=== PATIENT | female | born 1960 | race Caucasian/White ===

== ENCOUNTER 2019-09-17 20:21 | Inpatient (IN) ==
[~2019-09-17 20:21] MED LIST: Ipratropium Neb 0.5 MG NEBULIZER ONE
[2019-09-18] MEDS ORDERED: Naloxone 0.4 MG/ML INJ IVP PRN (03:50)
[2019-09-18] MEDS ORDERED: Ondansetron ODT 4 MG TAB.RAPDIS SL PRN (03:50)
[2019-09-18] MEDS ORDERED: Acetaminophen 325 MG TABLET PO PRN (03:50)
[2019-09-18] MEDS ORDERED: Albuterol 2.5 MG/3 ML NEBULIZER IH PRN (03:53)
[2019-09-18] MEDS: Ipratropium/Albuterol Neb 3 ML IH SCH ×4 (04:26→22:20)
[2019-09-18] MEDS ORDERED: *HR* LORazepam 2 MG/ML VIAL IVP ONE (04:28)
[2019-09-18] MEDS: Azithromycin 500 MG in 0.9 % Sodium Chloride 250 ML IVPB SCH (05:42)
[2019-09-18] MEDS: MethylPREDNISolone 40 MG/ML VIAL IVP SCH ×3 (05:43→17:08)
[2019-09-18 06:40] LABS: ABG Base Excess 18 mEq/L (-2 to 3); ABG HCO3 47 mEq/L (21-27); ABG Oxygen Saturation 97 % (95-98); ABG PCO2 75 mmHg (35-45); ABG PO2 93 mmHg (85-104); ABG TCO2 49 mEq/L (20-26); Blood Gas Modality NIV
[2019-09-18 07:11] LABS: Hematocrit 42.1 % (35.3-44.9); Mean Corpuscular HGB Conc 30.9 g/dL (31.6-35.5); Mean Corpuscular Hemoglobin 28.9 pg (28.0-33.3); Mean Corpuscular Volume 93.6 fL (83.0-100.0); Mean Platelet Volume 9.6 fL (9.4-12.4); Platelet Count 211 K/mcL (140-400); Red Cell Distribution Width 14.4 % (11.5-14.5); White Blood Count 10.1 K/mcL (4.3-11.1)
[2019-09-18 07:24] LABS: Adenovirus Not Detected (Not Detect); Bordetella Pertussis Not Detected (Not Detect); Chlamydophila pneumoniae Not Detected (Not Detect); Coronavirus 229E Not Detected (Not Detect); Coronavirus HKU1 DETECTED (Not Detect); Coronavirus NL63 Not Detected (Not Detect); Coronavirus OC43 Not Detected (Not Detect); Human Metapneumovirus Not Detected (Not Detect); Human Rhinovirus/Enterovirus Not Detected (Not Detect); Influenza B Not Detected (Not Detect); Mycoplasma pneumoniae Not Detected (Not Detect); Parainfluenza Virus 1 Not Detected (Not Detect); Parainfluenza Virus 2 Not Detected (Not Detect); Parainfluenza Virus 3 Not Detected (Not Detect); Parainfluenza Virus 4 Not Detected (Not Detect); Respiratory Syncytial Virus Not Detected (Not Detect)
[2019-09-18 07:26] LABS: Influenza A Subtype 2009 H1 DETECTED (Not Detect)
[2019-09-18 07:58] LABS: BUN/Creatinine Ratio 37 (6-26); Blood Urea Nitrogen 14 mg/dL (8-23); Calcium 8.6 mg/dL (8.6-10.3); Carbon Dioxide > 45 mEq/L (23-29); Chloride 94 mEq/L (98-107); Glucose 106 mg/dL (70-105); Osmolality,Calculated 293 (280-300); Potassium 3.7 mEq/L (3.5-5.1); Sodium 141 mEq/L (136-145); eGFR For African Americans > 60 (> 60); eGFR For Non-African Americans > 60 (> 60)
[2019-09-18] MEDS ORDERED: *HR* OxyCODONE/APAP 7.5/325 TABLET PO PRN (09:00)
[2019-09-18] MEDS ORDERED: Potassium Chloride Elixir 20 MEQ/15 ML UDC PO ONE (09:00)
[2019-09-18] MEDS: cefTRIAXone 1,000 MG in Water for inj. (sterile) 10 ML IVP SCH (10:11)
[2019-09-18] MEDS: DilTIAZem CD (24hr) 180 MG CAP.ER.24H PO SCH (10:11)
[2019-09-18] MEDS: Nicotine 21 MG PATCH.TD24 TD SCH (10:11)
[2019-09-18] MEDS: Furosemide 20 MG/2 ML VIAL IVP SCH ×2 (10:12→21:24)
[2019-09-18] MEDS: Budesonide/Formoterol 160/4.5 1 PUFF INH IH SCH ×2 (10:45→22:20)
[2019-09-18] MEDS ORDERED: Ondansetron ODT 4 MG TAB.RAPDIS SL SCH (12:00)
[2019-09-18] MEDS: *HR* Rivaroxaban 10 MG TABLET PO SCH (17:07)
[2019-09-18] MEDS: *HR* OxyCODONE/APAP 7.5/325 TABLET PO PRN (21:27)
[2019-09-19 02:07] LABS: White Blood Count 11.1 K/mcL (4.3-11.1)
[2019-09-19 02:08] LABS: Basophils % 0.2 %; Hematocrit 39.3 % (35.3-44.9); Hemoglobin 12.1 g/dL (11.5-15.4); Immature Granulocytes % 1.4 % (0-4); Lymphocytes # 0.6 K/mcL (0.6-4.6); Lymphocytes % 5.1 %; Mean Corpuscular HGB Conc 30.8 g/dL (31.6-35.5); Mean Corpuscular Hemoglobin 28.2 pg (28.0-33.3); Mean Corpuscular Volume 91.6 fL (83.0-100.0); Mean Platelet Volume 9.6 fL (9.4-12.4); Monocytes # 0.4 K/mcL (0.0-1.3); Monocytes % 3.2 %; Platelet Count 181 K/mcL (140-400); Red Blood Count 4.29 M/mcL (3.82-4.97); Red Cell Distribution Width 14.2 % (11.5-14.5); Segmented Neutrophils % 90.1 %
[2019-09-19] MEDS: MethylPREDNISolone 40 MG/ML VIAL IVP SCH ×4 (02:28→17:21)
[2019-09-19 02:35] LABS: BUN/Creatinine Ratio 47 (6-26); Blood Urea Nitrogen 21 mg/dL (8-23); Calcium 8.3 mg/dL (8.6-10.3); Carbon Dioxide > 45 mEq/L (23-29); Chloride 92 mEq/L (98-107); Glucose 132 mg/dL (70-105); Magnesium 2.1 mg/dL (1.6-2.6); Osmolality,Calculated 295 (280-300); Phosphorous 3.3 mg/dL (2.7-4.5); Potassium 3.9 mEq/L (3.5-5.1); Sodium 140 mEq/L (136-145); eGFR For African Americans > 60 (> 60); eGFR For Non-African Americans > 60 (> 60)
[2019-09-19] MEDS: Ipratropium/Albuterol Neb 3 ML IH SCH ×4 (03:40→22:21)
[2019-09-19] MEDS: Azithromycin 500 MG in 0.9 % Sodium Chloride 250 ML IVPB SCH (05:03)
[2019-09-19] MEDS: Furosemide 20 MG/2 ML VIAL IVP SCH ×2 (07:37→22:03)
[2019-09-19] MEDS: DilTIAZem CD (24hr) 180 MG CAP.ER.24H PO SCH (07:37)
[2019-09-19] MEDS: Nicotine 21 MG PATCH.TD24 TD SCH (07:38)
[2019-09-19] MEDS: cefTRIAXone 1,000 MG in Water for inj. (sterile) 10 ML IVP SCH (07:39)
[2019-09-19] MEDS: *HR* OxyCODONE/APAP 7.5/325 TABLET PO PRN ×3 (07:46→23:36)
[2019-09-19] MEDS: Budesonide/Formoterol 160/4.5 1 PUFF INH IH SCH ×2 (11:05→22:21)
[2019-09-19] MEDS: *HR* Rivaroxaban 10 MG TABLET PO SCH (17:21)
[2019-09-20] MEDS: Ipratropium/Albuterol Neb 3 ML IH SCH ×3 (03:56→14:13)
[2019-09-20 04:44] LABS: ABG Base Excess 20 mEq/L (-2 to 3); ABG HCO3 48 mEq/L (21-27); ABG Oxygen Saturation 96 % (95-98); ABG PCO2 68 mmHg (35-45); ABG PH 7.45 pH Units (7.32-7.45); ABG PO2 81 mmHg (85-104); ABG TCO2 50 mEq/L (20-26)
[2019-09-20] MEDS: Azithromycin 500 MG in 0.9 % Sodium Chloride 250 ML IVPB SCH (05:32)
[2019-09-20] MEDS: MethylPREDNISolone 40 MG/ML VIAL IVP SCH (05:32)
[2019-09-20 06:55] LABS: BUN/Creatinine Ratio 61 (6-26); Blood Urea Nitrogen 23 mg/dL (8-23); Calcium 8.9 mg/dL (8.6-10.3); Chloride 90 mEq/L (98-107); Glucose 100 mg/dL (70-105); Osmolality,Calculated 296 (280-300); Phosphorous 3.3 mg/dL (2.7-4.5); Potassium 3.6 mEq/L (3.5-5.1); Sodium 141 mEq/L (136-145); eGFR For African Americans > 60 (> 60); eGFR For Non-African Americans > 60 (> 60)
[2019-09-20 06:59] LABS: Carbon Dioxide > 45 mEq/L (23-29)
[2019-09-20] MEDS: *HR* OxyCODONE/APAP 7.5/325 TABLET PO PRN (07:35)
[2019-09-20] MEDS ORDERED: levoFLOXacin 750 MG TABLET PO SCH (09:00)
[2019-09-20] MEDS: Nicotine 21 MG PATCH.TD24 TD SCH (10:03)
[2019-09-20] MEDS: DilTIAZem CD (24hr) 180 MG CAP.ER.24H PO SCH (10:03)
[2019-09-20] MEDS: Furosemide 20 MG/2 ML VIAL IVP SCH (10:03)
[2019-09-20 10:31] VITALS: BP 170/91
[2019-09-20] MEDS: Budesonide/Formoterol 160/4.5 1 PUFF INH IH SCH (11:04)
== END 2019-09-20 16:22 | disposition home or self-care (01) | DRG 193 ==
LOC: 2NENU → SUATTDRO 23:52
PROVIDERS: ADMIT Family Medicine; ATTEND Internal Medicine